=== PATIENT | male | born 1965 | race Hispanic/Latino ===

== ENCOUNTER 2017-11-18 13:17 | Emergency (ER) | payer OTHER ==
--- NOTE | 2017-11-18 13:40 | RAD ---
CHEST ONE VIEW: History: Cough. Fever. Comparison: 02-09-10 FINDINGS: Cardiac silhouette is magnified by projection. Pulmonary vasculature is unremarkable. Mediastinum is midline. There is no confluent airspace consolidation or evidence of pneumothorax. IMPRESSION: No active cardiopulmonary abnormalities are demonstrated. POS: [facility]
[2017-11-18] MEDS ORDERED: methylPREDNISolone Sod Succ/PF 125 MG/2 ML VIAL ONE (15:14)
[2017-11-18] MEDS ORDERED: Lidocaine 1% PF 5 ML VIAL ONE (15:14)
--- NOTE | 2017-11-19 07:12 | RAD ---
CHEST TWO VIEWS: History: Cough and fever. Comparison: 02-09-10 FINDINGS: Cardiac silhouette and pulmonary vasculature are unremarkable. Mediastinum is midline. There is no co nfluent airspace consolidation, pneumothorax, or pleural fluid apparent. IMPRESSION: No active cardiopulmonary abnormalities are demonstrated. POS: [facility]
== END 2017-11-18 16:00 | disposition home or self-care (01) ==
LOC: ERS 13:17
DX: J20.9 Acute bronchitis, unspecified (principal); I10 Essential (primary) hypertension; E78.5 Hyperlipidemia, unspecified; E11.9 Type 2 diabetes mellitus without complications
CPT/HCPCS: 71020; 96372; J2001; J2930

== ENCOUNTER 2018-07-23 12:54 | Outpatient (CLI) | payer MEDICARE | END 2018-07-23 12:55 | disposition home or self-care (01) | LOC: BICULT 12:54 | PROVIDERS: ATTEND Family Medicine | DX: N50.811 Right testicular pain (principal); M81.0 Age-related osteoporosis without current pathological fracture; S32.009S Unspecified fracture of unspecified lumbar vertebra, sequela; M99.33 Osseous stenosis of neural canal of lumbar region; M48.03 Spinal stenosis, cervicothoracic region; M96.1 Postlaminectomy syndrome, not elsewhere classified; M48.061 Spinal stenosis, lumbar region without neurogenic claudication; M99.83 Other biomechanical lesions of lumbar region; Z98.890 Other specified postprocedural states | CPT/HCPCS: 72148; 76870; 93976 ==

== ENCOUNTER 2020-08-01 12:28 | Inpatient (IN) | payer MEDICARE, OTHER ==
[2020-08-01] MEDS ORDERED: Acetaminophen 500 MG TAB ONE (12:44)
[2020-08-01] MEDS ORDERED: Aspirin Chewable 81 MG TAB ONE (12:44)
[2020-08-01 12:59] LABS: #Eosinphils 0.1 thou/uL (0.0-0.7); #Lymphocytes 1.4 thou/uL (1.20-3.40); #Monocytes 0.2 thou/uL (0.11-0.59); %Basophils 0.4 % (0.0-1.0); %Eosinophils 1.8 % (0.0-10.0); %Lymphocytes 30.6 % (21.0-51.0); %Monocytes 4.2 % (0.0-10.0); Mean Corpuscular Hemoglobin 26.4 pg (27.0-31.0); Mean Platelet Volume 8.3 fL (7.4-10.4); Platelet Count 161 thou/uL (130-400); RBC Distribution Width 15.9 % (11.5-14.5); Red Blood Cell (RBC) Count 4.91 mill/uL (4.70-6.10); White Blood Cell (WBC) Count 4.7 thou/uL (4.8-10.8)
[2020-08-01 13:17] LABS: ALT (SGPT) 41 U/L (8-55); AST (SGOT) 29 U/L (5-34); Albumin 3.8 g/dL (3.5-5.0); Alkaline Phosphatase 113 U/L (40-110); Anion Gap 12 mmol/L (10-20); BUN (Urea Nitrogen) 11 mg/dL (8.4-25.7); Bilirubin, Total 1.6 mg/dL (0.2-1.2); Calc. Creatinine Clearance 0 mL/min (70-130); Calcium 8.3 mg/dL (7.8-10.44); Carbon Dioxide 23 mmol/L (22-29); Chloride 106 mmol/L (98-107); Estimated GFR-MDRD Greater than 90; Globulin 2.5 g/dL (2.4-3.5); Glucose 165 mg/dL (70-105); Protein, Total 6.3 g/dL (6.0-8.3); Sodium 138 mmol/L (136-145)
[2020-08-01] MEDS ORDERED: Potassium Chloride 20 MEQ TAB ONE ×2 (13:25→14:54)
--- NOTE | 2020-08-01 13:26 | RAD ---
XR Chest 1 View Portable HISTORY: Left-sided chest pain COMPARISON: 11/18/2017 FINDINGS: The heart size is normal. The lungs are well expanded without focal areas of consolidation, pneumothorax or pleural effusions. IMPRESSION: No radiographic evidence of acute cardiopulmonary process.
[2020-08-01] MEDS ORDERED: Acetaminophen 325 MG TAB PO PRN (16:08)
[2020-08-01 16:09] VITALS: BMI 31.1
[2020-08-01] MEDS ORDERED: HumaLOG 300 UNITS/3 ML VIAL SC PRN ×2 (16:46)
[2020-08-01] MEDS ORDERED: Dextrose 5% in Water 1,000 ML IV PRN (16:46)
[2020-08-01] MEDS ORDERED: Dextrose 50% Abboject 50 ML SYRINGE SLOW IVP PRN (16:46)
[2020-08-01] MEDS ORDERED: Electrolyte Replacement Protocol FS PRN (17:00)
[2020-08-01] MEDS ORDERED: Electrolyte Replacement Protoc 1 EACH EACH FS SCH (17:00)
--- NOTE | 2020-08-01 18:40 | PDOC.HHP ---
Hospitalist HPI - History of Present Illness chest pain History of Present Illness: PCP: Geoffrey santos Patient is a 55-year-old male with past medical history significant for diabetes , hypertension and hyperlipidemia. Patient presented to the ER with chief complaint of left-sided sharp chest pain that radiates to his back. He states that he was arguing with his when the sharp chest pain started. Reports that his left hand was tingling in his left arm felt numb. Patient states that he had intermittent chest pain the past month. Denies shortness of breath, abdominal pain, contact with ill persons, change in bowel or bladder patterns. States his been compliant with medications. Patient stated that approximately 2 weeks ago he went to his physician and they referred him to cardiology, however, he has not been able to make that appointment yet. He reports that his last stress test and heart cath was approximately 9 to 10 years ago. ED Course: Today in the ER the patient had lab work completed, EKG, and chest x-ray. Patient was given potassium chloride 40 mEq, Tylenol 1 g, and aspirin 324 mg. Hospitalist ROS - Review of Systems Constitutional: denies: fever, chills, sweats, weakness, malaise, other Eyes: denies: pain, vision change, conjunctivae inflammation, eyelid inflammation, redness, other ENT: denies: ear pain, ear discharge, nose pain, nose discharge, nose congestion , mouth pain, mouth swelling, throat pain, throat swelling, other Respiratory: denies: cough, dry, shortness of breath, hemoptysis, SOB with excertion, pleuritic pain, sputum, wheezing, other Cardiovascular: reports: chest pain Gastrointestinal: denies: nausea, vomiting, abdominal pain, diarrhea, constipation, melena, hematochezia, other Genitourinary: denies: dysuria, frequency, incontinence, hematuria, retention, other Musculoskeletal: denies: neck pain, shoulder pain, arm pain, back pain, hand pain, leg pain, foot pain, other Skin: denies: rash, lesions, edgar, bruising, other Neurological: denies: weakness, numbness, incoordination, change in speech, confusion, seizures, other All other systems reviewed; all pertinent +/- noted in HPI/Subj - Medication Medications: Allergies: Tylenol #3 Current Medications: Nayeli Albert Aug 01, 2020 12:40 LIDIA Koehler Rachel tablet : Strength - 20 mg : ORAL Patient Dose: 0.5 tab(s) Oral once a day (in the morning). Unknown FriAug 01, 2020 12:41 LIDIA Koehler Rachel UNABLE TO RECALL NAME OF DIABETES MED. aspirin oral FriAug 01, 2020 12:41 LIDIA Koehler Rachel TABLET : Strength - 81 mg : ORAL Patient Dose: 1 tab(s) Oral once a day. gabapentin FriAug 01, 2020 12:41 LIDIA Koehler Rachel TABLET : Strength - 100 mg : ORAL Patient Dose: 300 tab(s) Oral 3 times a day. lisinopril-hydrochlorothiazide FriAug 01, 2020 12:41 LIDIA Koehler Rachel TABLET : Strength - 20 mg-25 mg : ORAL Patient Dose: 1 tab(s) Oral once a day (in the morning). Hospitalist History - Past Medical History Source: patient Cardiac: reports: HTN, Hyperlipidemia Musculoskeletal: reports: Chronic low back pain Endocrine: reports: Diabetes - Past Surgical History Past Surgical History: reports: Cholecystectomy - Family History Family History: reports: no pertinent history - Social History Smoking Status: Never smoker Alcohol: reports: None Drugs: reports: none Living Situation: With Family Occupation: disabled - Exam General Appearance: NAD, awake alert General - other findings: VS:BP: 122/72, Pulse: 65, Resp: 16, Temp: 97.7 (Oral) , O2 sat: 99%RA Eye: PERRL ENT: normocephalic atraumatic, moist mucosa Neck: supple, no lymphadenopathy Heart: RRR, no murmur, no gallops, no rubs, normal peripheral pulses Respiratory: CTAB, no wheezes, no rales, no ronchi, normal chest expansion Gastrointestinal: soft, non-tender, non-distended, normal bowel sounds Extremities: no cyanosis, no edema Extremities - other findings: l arm numbness Neurological: no new deficit Psychiatric: normal affect, normal behavior Hospitalist Results - Labs Result Diagrams: 08/01/20 12:42 08/01/20 12:42 Lab results: WBC 4.7 thou/uL (4.8-10.8) L 08/01/20 12:42 Hgb 13.0 g/dL (14.0-18.0) L 08/01/20 12:42 Hct 39.3 % (42.0-52.0) L 08/01/20 12:42 MCV 80.0 fL (78.0-98.0) 08/01/20 12:42 Plt Count 161 thou/uL (130-400) 08/01/20 12:42 Neutrophils % 63.0 % (42.0-75.0) 08/01/20 12:42 Sodium 138 mmol/L (136-145) 08/01/20 12:42 Potassium 3.0 mmol/L (3.5-5.1) L 08/01/20 12:42 Chloride 106 mmol/L (98-107) 08/01/20 12:42 Carbon Dioxide 23 mmol/L (22-29) 08/01/20 12:42 BUN 11 mg/dL (8.4-25.7) 08/01/20 12:42 Creatinine 0.86 mg/dL (0.7-1.3) 08/01/20 12:42 Glucose 165 mg/dL (70-105) H 08/01/20 12:42 Calcium 8.3 mg/dL (7.8-10.44) 08/01/20 12:42 Total Bilirubin 1.6 mg/dL (0.2-1.2) H 08/01/20 12:42 AST 29 U/L (5-34) 08/01/20 12:42 ALT 41 U/L (8-55) 08/01/20 12:42 Alkaline Phosphatase 113 U/L (40-110) H 08/01/20 12:42 Troponin I 0.010 ng/mL (< 0.028) 08/01/20 16:23 Serum Total Protein 6.3 g/dL (6.0-8.3) 08/01/20 12:42 Albumin 3.8 g/dL (3.5-5.0) 08/01/20 12:42 Laboratory Tests 08/01/20 12:42 Troponin I 0.013 - EKG Interpretation EKG: SR 84 - Radiology Interpretation Chest x-ray Status: report reviewed by me Additional Comment: IMPRESSION: No radiographic evidence of acute cardiopulmonary process Hospitalist H&P A/P - Problem (1) Chest pain Code(s): R07.9 - CHEST PAIN, UNSPECIFIED Status: Acute (2) Diabetes mellitus, type 2 Status: Chronic (3) Hyperlipidemia Code(s): E78.5 - HYPERLIPIDEMIA, UNSPECIFIED Status: Chronic - Plan Plan: Chest pain Continue to trend troponins Monitor on telemetry Cardiac stress test in a.m. Hypokalemia Potassium replaced Electrolyte replacement protocol Check magnesium level also Hypertension Restart home medications Check vital signs every 4 hours Diabetes type 2 Restart home medications Mild sliding scale insulin GI and VTE prophylaxis in place CODE STATUS: Full Patient did not want to name surrogate decision-maker Patient discussed with Dr. Doe
[2020-08-01 19:01] LABS: Troponin I 0.014 ng/mL (< 0.028)
[2020-08-01] MEDS: Gabapentin 300 MG CAP PO SCH (21:14)
[2020-08-02] MEDS ORDERED: Lidocaine 2% Viscous Solution 10 ML, Aluminum & Magnesium Hydroxide 30 ML SSW SCH (00:15)
[2020-08-02 05:05] LABS: Cardiac Risk 3.8 (Less than 4.5)
[2020-08-02] MEDS ORDERED: Magnesium 2 GM/50 ML 2 GM in Premix Bag 1 BAG IVPB SCH (06:30)
[2020-08-02] MEDS ORDERED: Potassium Chloride 20 MEQ TAB PO SCH (06:45)
[2020-08-02] MEDS: Famotidine 20 MG TAB PO SCH ×2 (08:10→20:21)
[2020-08-02] MEDS: Gabapentin 300 MG CAP PO SCH ×2 (08:10→20:21)
[2020-08-02] MEDS ORDERED: Aspirin 325 mg Enteric Coated Tablet PO SCH (09:00)
[2020-08-02] MEDS ORDERED: Enoxaparin Sodium 40 MG/0.4 ML SYRINGE SC SCH (09:00)
[2020-08-02] MEDS ORDERED: ADENOSINE 60 MG/20 ML VIAL ONE (11:06)
[2020-08-02] MEDS ORDERED: Iopamidol 370 76% 100 ML VIAL ONE (11:10)
--- NOTE | 2020-08-02 12:09 | NM ---
EXAM: CARDIAC SPECT HISTORY: Chest pain, hypertension, dyslipidemia, diabetes TECHNIQUE: A myocardial perfusion scan was performed using the single isotope 1 day protocol with chanda hnetium 99m sestamibi. [10 mCi] was injected intravenously for the rest exam followed by 32 mCifor the stress study. Pharmacologic stress with adenosine was monitored and interpreted by SUNG Clement FINDINGS: There is a small defect in the region of the apex on the stress images with incomplete reso lution at rest. Gated SPECT LVEF: 45% Wall motion exam: Mild global hypokinesis IMPRESSION: Findings suggestive of probable apical ischemia.
[2020-08-02 13:04] LABS: SARS-CoV-2 MS2 Positive; SARS-CoV-2 N Gene Negative; SARS-CoV-2 S Gene Negative; SARS-CoV-2 by NAA Not Detected (NotDetected); SARS-CoV-2 orf1ab Negative
[2020-08-02] MEDS ORDERED: Sodium Chloride 0.9% 1,000 ML IV SCH (14:30)
[2020-08-02] MEDS ORDERED: Communication Order-Pharmacy FS SCH (14:30)
--- NOTE | 2020-08-02 14:54 | CON ---
DATE OF CONSULTATION: REASON FOR CONSULTATION: Chest pain and abnormal stress study. HISTORY OF PRESENT ILLNESS: Mr. Pool is a 55-year-old gentleman, who I have seen and evaluated in the past. He was last seen in 2011. He underwent coronary angiography after having abnormal stress test. The current records are not available from 2011 that was last time he was seen in the office. He underwent coronary angiography and was found to have [id number]-pjkzlscs coronary artery disease. His LVEF at that time was 40% to 45%. He has not been seen or evaluated since 2011. He restates he recently presented with chest pain. He had an episode four weeks ago. Pain was [id number], lasting for seconds. He then had an another episode after arguing with his . It was described as moderate. This lasted for several minutes. Based on the above, he presented to the emergency room. His CK troponin has been negative. His recent stress study did show apical ischemia with LVEF 45%. PAST MEDICAL HISTORY: Borderline diabetes, hyperlipidemia, and hypertension. No tobacco abuse HOME MEDICATIONS: Include Cialis, aspirin, gabapentin, and lisinopril/hydrochlorothiazide. PAST SURGICAL HISTORY: Cholecystectomy. REVIEW OF SYSTEMS: Ten-point review of systems is reviewed and as above, otherwise negative. PHYSICAL EXAMINATION: GENERAL: Patient is a pleasant male, who is in no acute distress. The patient appears their stated age. VITAL SIGNS: Blood pressure 134/71, pulse 70, and temperature 97.7. NEUROLOGIC: The patient is alert and oriented x3 with no focal neurologic deficits. HEENT: Sclerae without icterus. Mouth has moist mucous membranes with normal pallor. NECK: No JVD. Carotid upstroke brisk. No bruits bilaterally. LUNGS: Clear to auscultation with unlabored respirations. BACK: No scoliosis or kyphosis. CARDIAC: Regular rate and rhythm with normal S1 and S2. No S3 or S4 noted. No significant rubs, murmurs, thrills, or gallops noted throughout the precordium. PMI is not displaced. There is no parasternal heave. ABDOMEN: Soft, nontender, nondistended. No peritoneal signs present. No hepatosplenomegaly. No abnormal striae. EXTREMITIES: 2+ femoral and 2+ dorsalis pedis pulses. No cyanosis, clubbing, or edema. SKIN: No gross abnormalities. PERTINENT LABORATORY DATA: CK troponin negative. Creatinine 0.86. Stress and rest myocardial perfusion study as above. IMPRESSION: 1. Abnormal stress test. 2. Chest pain. 3. Risk factors for underlying coronary artery disease. RECOMMENDATIONS: I discussed several options with Mr. Pool including medical therapy versus proceeding with coronary angiography. After discussing risks and benefits of above, he decided to proceed with coronary angiography. Discussed the procedure in full detail with Mr. Pool. Risks include, but not limited to the following: I discussed the procedure in full detail with the patient. The risks of the procedure were also discussed. The risks of the procedure include but are not limited to the following: , stroke, DC, need for emergency surgery, loss of limb, bleeding, and infection, as well as a reaction to the dye causing kidney failure and needing long-term dialysis. I also discussed the risks of PCI to include all of the above including coronary dissection and perforation in addition to acute stent thrombosis and restenosis. All questions about the procedure were answered. Given the above, the patient agreed to proceed with coronary angiography and possible PCI. All questions were answered. I also discussed drug-coated versus nondrug-coated stent placement. There were no contraindication to proceed if needed. Further recommendations pending the above. Job ID: [id number]
[2020-08-02] MEDS ORDERED: Lidocaine 1% (PF) 30 ML VIAL ONE (15:00)
[2020-08-02] MEDS ORDERED: Verapamil 5 MG/2 ML VIAL ONE (15:54)
[2020-08-02] MEDS ORDERED: Heparin 10,000 UNITS/ 10 ML VIAL ONE (15:54)
[2020-08-02] MEDS ORDERED: Nitroglycerin 100MG/250ML BOT 250 ML ONE (15:54)
[2020-08-02] MEDS ORDERED: Midazolam HCl 2 mg/2 ml Vial ONE (15:57)
[2020-08-02] MEDS ORDERED: Fentanyl 100 MCG/2 ML VIAL ONE (15:57)
--- NOTE | 2020-08-02 20:50 | DIS ---
DATE OF ADMISSION: 08/02/2020 DATE OF DISCHARGE: 08/02/2020 DISCHARGE DIAGNOSES: 1. Coronary artery disease, mild, medically managed. 2. Hypertension, stable. 3. Diabetes mellitus, type 2. 4. Hyperlipidemia. CONSULTATIONS: Dr. Baires with Cardiology Service. PERTINENT LABORATORY AND X-RAY FINDINGS: Potassium 3.0, magnesium 1.5. Troponin I negative x3. Total cholesterol 64, triglycerides 45, HDL 17, and LDL 38. COVID-19 PCR not detected on 08/01/2020. Portable chest x-ray dated 08/01/2020, showed no acute cardiopulmonary process. Cardiolite stress test dated 08/02/2020, showed apical ischemia with calculated ejection fraction of 45%. Cardiac catheterization dated 08/02/2020, showed 20% stenosis of the LAD, recommendations for medical management. HOSPITAL COURSE: The patient was evaluated after presenting with chest pain in the context of hypertension, diabetes, and hyperlipidemia. Serial troponin I was negative x3, at which point, the patient underwent Cardiolite stress testing showing questionable apical ischemia with calculated ejection fraction of 45%. Due to the abnormal cardiac stress test, the patient underwent evaluation by the Cardiology Service proceeding to cardiac catheterization showing minimal coronary artery disease with recommendations for medical management to include aspirin 81 mg daily. The patient was encouraged on risk factor modification and tighter control of diabetes. I have examined the patient at the time of discharge and discussed followup instructions. The patient verbalized understanding and in agreement and ready for discharge on 08/02/2020. DISCHARGE MEDICATIONS: 1. Enteric-coated aspirin 81 mg p.o. daily. 2. Gabapentin 600 mg p.o. b.i.d. 3. Amaryl 2 mg p.o. q.a.m. 4. Lisinopril/hydrochlorothiazide 20/25 mg one tablet p.o. daily. 5. Cialis 5 mg p.o. daily. 6. Testosterone. FOLLOWUP: The patient may follow up with his primary care provider, Vibha Spear, within 7 days of discharge. CONDITION ON DISCHARGE: Stable. ACTIVITY: Ad-bal. DIET: ADA and heart healthy. CODE STATUS: Full. DISPOSITION: Home on 08/02/2020. Job ID: [id number]
[2020-08-02 21:31] VITALS: BP 131/77; TEMP 97.9
== END 2020-08-02 21:46 | disposition home or self-care (01) | DRG 287 ==
LOC: ERS 12:28 → 2SW 14:10 → OBSVTOIN 08-02 16:02
PROVIDERS: ADMIT Family Medicine; ATTEND Family Medicine
PROC: B2111ZZ Fluoroscopy of Multiple Coronary Arteries using Low Osmolar Contrast (ICD-10-PCS; principal; 2020-08-02)
PROC: B2151ZZ Fluoroscopy of Left Heart using Low Osmolar Contrast (ICD-10-PCS; 2020-08-02)
PROC: 4A023N7 Measurement of Cardiac Sampling and Pressure, Left Heart, Percutaneous Approach (ICD-10-PCS; 2020-08-02)
DX: I25.10 Atherosclerotic heart disease of native coronary artery without angina pectoris (principal); R07.9 Chest pain, unspecified; E11.9 Type 2 diabetes mellitus without complications; I10 Essential (primary) hypertension; G89.29 Other chronic pain; M54.9 Dorsalgia, unspecified; E87.6 Hypokalemia; E78.5 Hyperlipidemia, unspecified; Z79.899 Other long term (current) drug therapy; Z79.82 Long term (current) use of aspirin; Z90.49 Acquired absence of other specified parts of digestive tract; Z88.2 Allergy status to sulfonamides; Z88.6 Allergy status to analgesic agent
CPT/HCPCS: 36415; 36416; 71045; 76942; 78452; 80053; 80061; 83735; 84484; 85025; 87635; 93005; 93017; 93454; 94760; 99152; 99153; A9500; J0153; J1644; J2001; J2250; J3010; J3475; Q9967; U0003

== ENCOUNTER 2020-11-14 10:21 | Outpatient (CLI) | payer MEDICARE ==
--- NOTE | 2020-11-14 10:45 | RAD ---
EXAM: XR Lumbar Spine 2 Or 3 View PROVIDED CLINICAL HISTORY: Back pain COMPARISON: None FINDINGS: 5 nonrib-bearing lumbar-type vertebral bodies are demonstrated. Fusion changes are seen from L2 throu gh S1 with intervening intervertebral disc devices. There is no evidence for hardware loosening or migration. Disc space narrowing, endplate degenerative change and vacuum disc phenomena demonstrated at L1-2. Vertebral body heights appear preserved. No lytic or blastic bony lesions are seen. Lumbar alignment appears normal. IMPRESSION: Extensive postoperative change, with prominent disc degenerative change at L1-2.
== END 2020-11-14 10:22 | disposition home or self-care (01) ==
LOC: RAD-FRANK 10:21
PROVIDERS: ATTEND Nurse Practitioner Family
DX: M51.16 Intervertebral disc disorders with radiculopathy, lumbar region (principal); Z98.890 Other specified postprocedural states
CPT/HCPCS: 72100

== ENCOUNTER 2020-12-30 18:56 | Inpatient (IN) | payer MEDICARE ==
[~2020-12-30 18:56] MED LIST: Iopamidol-370 76% 500 ML 1 ML ONE
[2020-12-30 19:27] LABS: #Lymphocytes 0.4 thou/uL (1.20-3.40); #Neutrophils 1.6 thou/uL (1.40-6.50); %Lymphocytes 17.7 % (21.0-51.0); %Monocytes 0.7 % (0.0-10.0); %Neutrophils 80.6 % (42.0-75.0); Hemoglobin 12.3 g/dL (14.0-18.0); Mean Corpuscular HGB CONC 30.7 g/dL (32.0-36.0); Mean Corpuscular Hemoglobin 23.7 pg (27.0-31.0); Mean Corpuscular Volume 77.3 fL (78.0-98.0); Mean Platelet Volume 8.8 fL (7.4-10.4); Platelet Count 132 thou/uL (130-400); RBC Distribution Width 15.6 % (11.5-14.5)
[2020-12-30] MEDS ORDERED: Cefepime 2 GM VIAL ONE (19:36)
[2020-12-30] MEDS ORDERED: Ondansetron PF 4 MG/2 ML Vial ONE (19:36)
[2020-12-30] MEDS ORDERED: Lorazepam 2 MG/ML VIAL ONE (19:36)
[2020-12-30] MEDS ORDERED: Acetaminophen 325 MG TAB ONE (19:36)
[2020-12-30] MEDS ORDERED: Vancomycin 1 GM/200 ML BAG ONE (19:36)
[2020-12-30 19:52] LABS: ALT (SGPT) 34 U/L (8-55); AST (SGOT) 53 U/L (5-34); Albumin 3.1 g/dL (3.5-5.0); Alkaline Phosphatase 98 U/L (40-110); Anion Gap 18 mmol/L (10-20); BUN (Urea Nitrogen) 18 mg/dL (8.4-25.7); Calc. Creatinine Clearance 0 mL/min (70-130); Calcium 7.3 mg/dL (7.8-10.44); Carbon Dioxide 15 mmol/L (22-29); Chloride 112 mmol/L (98-107); Globulin 2.8 g/dL (2.4-3.5); Glucose 142 mg/dL (70-105); Potassium 4.2 mmol/L (3.5-5.1); Protein, Total 5.9 g/dL (6.0-8.3); Sodium 141 mmol/L (136-145)
[2020-12-30] MEDS ORDERED: Norepinephrine 8 MG/0.9% NS 250 ML ONE (20:18)
[2020-12-30] MEDS ORDERED: Ketamine 50 MG/ML (10ML VIAL) ONE (20:18)
[2020-12-30 20:47] LABS: SARS-CoV-2 NAA Rapid Test Not Detected (NotDetected)
[2020-12-30 21:35] LABS: Bacteria/HPF 2+ HPF (None Seen); Bilirubin Negative (Negative); Blood, Urine 2+ (Negative); Clarity Turbid (Clear); Glucose, Urine (Dipstick) Normal (Negative); Ketone, Urine Negative (Negative); Leukocyte 250 Leu/uL (Negative); Nitrite 1+ (Negative); Protein, Urine (Dipstick) 30 mg/dL (Neg-Trace); RBC/HPF Greater than 50 HPF (0-3); Specific Gravity, Urine 1.028 (1.002-1.036); Squamous Epithelial 0-3 HPF (0-3); Urobilinogen Normal mg/dL (Less than 2); WBC/HPF 21-50 HPF (0-3)
[2020-12-30] MEDS ORDERED: Dexamethasone 10 MG/ML VIAL ONE (21:35)
[2020-12-30 22:20] LABS: Lactic Acid 3.3 mmol/L (0.5-2.2)
[2020-12-30] MEDS ORDERED: Ondansetron PF 4 MG/2 ML Vial IVP PRN (23:07)
[2020-12-30 23:48] LABS: Hemoglobin 12.1 g/dL (14.0-18.0); Mean Corpuscular HGB CONC 31.8 g/dL (32.0-36.0); Mean Corpuscular Hemoglobin 24.2 pg (27.0-31.0); Mean Platelet Volume 9.8 fL (7.4-10.4); Platelet Count 130 thou/uL (130-400); RBC Distribution Width 15.8 % (11.5-14.5); Red Blood Cell (RBC) Count 4.99 mill/uL (4.70-6.10)
[2020-12-31 00:01] LABS: Vancomycin, Trough 6.5 ug/mL
[2020-12-31 00:10] LABS: ALT (SGPT) 134 U/L (8-55); AST (SGOT) 309 U/L (5-34); Alkaline Phosphatase 149 U/L (40-110); Anion Gap 12 mmol/L (10-20); BUN (Urea Nitrogen) 19 mg/dL (8.4-25.7); Bilirubin, Total 2.6 mg/dL (0.2-1.2); Calc. Creatinine Clearance 0 mL/min (70-130); Calcium 7.1 mg/dL (7.8-10.44); Carbon Dioxide 16 mmol/L (22-29); Chloride 115 mmol/L (98-107); Globulin 2.3 g/dL (2.4-3.5); Glucose 121 mg/dL (70-105); Potassium 3.4 mmol/L (3.5-5.1); Protein, Total 5.3 g/dL (6.0-8.3); Sodium 140 mmol/L (136-145)
[2020-12-31 00:30] LABS: Band 15 % (5-11); MDiff Complete? YES; Neutrophil 85 % (42-75); Platelet Morphology Comment Appears Adequate
[2020-12-31 02:18] LABS: Hemoglobin 12.3 g/dL (14.0-18.0); Mean Corpuscular HGB CONC 31.8 g/dL (32.0-36.0); Mean Corpuscular Hemoglobin 24.1 pg (27.0-31.0); Mean Corpuscular Volume 75.6 fL (78.0-98.0); Mean Platelet Volume 9.7 fL (7.4-10.4); Platelet Count 142 thou/uL (130-400); RBC Distribution Width 15.8 % (11.5-14.5); Red Blood Cell (RBC) Count 5.13 mill/uL (4.70-6.10); White Blood Cell (WBC) Count 20.4 thou/uL (4.8-10.8)
[2020-12-31 02:29] LABS: Lactic Acid 1.8 mmol/L (0.5-2.2)
[2020-12-31 02:34] LABS: Band 29 % (5-11); MDiff Complete? YES; Monocytes 2 % (0-10); Neutrophil 69 % (42-75); Platelet Morphology Comment Appears Adequate
[2020-12-31 03:15] LABS: Anion Gap 13 mmol/L (10-20); BUN (Urea Nitrogen) 20 mg/dL (8.4-25.7); Calc. Creatinine Clearance 0 mL/min (70-130); Calcium 7.3 mg/dL (7.8-10.44); Carbon Dioxide 15 mmol/L (22-29); Chloride 116 mmol/L (98-107); Glucose 145 mg/dL (70-105); Potassium 3.1 mmol/L (3.5-5.1); Sodium 141 mmol/L (136-145)
[2020-12-31] MEDS ORDERED: Levofloxacin 500 mg/D5W 100 ml Premix Bag ONE ×2 (03:50→23:38)
[2020-12-31] MEDS ORDERED: Norepinephrine 8 MG/0.9% NS 250 ML ONE ×2 (03:58→12:01)
[2020-12-31] MEDS: Lactated Ringer's 1,000 ML IV SCH ×3 (04:17→19:38)
[2020-12-31] MEDS ORDERED: Potassium Chloride 20 MEQ in Premix Bag 1 BAG IVPB SCH (09:15)
[2020-12-31] MEDS ORDERED: Vancomycin 1 GM/200 ML BAG ONE ×2 (09:27→21:25)
[2020-12-31] MEDS ORDERED: Famotidine/PF 20 mg/2ml Vial ONE ×2 (09:27→21:30)
[2020-12-31] MEDS: Heparin 5,000 UNITS/ML VIAL SC SCH ×3 (09:30→21:27)
[2020-12-31] MEDS: Famotidine/PF 20 mg/2ml Vial SLOW IVP SCH ×2 (09:30→21:34)
[2020-12-31] MEDS ORDERED: Potassium Chloride 20 MEQ/100 ML PREMIX BAG ONE (09:43)
[2020-12-31] MEDS: Vancomycin 1 GM in Premix Bag 1 BAG IVPB SCH ×2 (09:55→21:27)
[2020-12-31] MEDS ORDERED: HYDROcodone/Acetaminophen 5/325 mg Tablet ONE ×3 (11:25→23:50)
[2020-12-31] MEDS: HYDROcodone/Acetaminophen 5/325 mg Tablet PO PRN ×3 (11:26→23:51)
[2020-12-31] MEDS ORDERED: HumaLOG 300 UNITS/3 ML VIAL ONE ×2 (18:29→18:56)
[2020-12-31] MEDS: HumaLOG 300 UNITS/3 ML VIAL SC PRN (18:34)
[2020-12-31] MEDS ORDERED: Famotidine 20 MG TAB ONE ×2 (21:20→21:30)
[2020-12-31] MEDS ORDERED: Heparin 5,000 UNITS/ML VIAL ONE (21:20)
[2021-01-01] MEDS: Lactated Ringer's 1,000 ML IV SCH ×2 (05:22→16:03)
[2021-01-01] MEDS: Norepinephrine 8 MG/0.9% NS 250 ML IVPB SCH (05:40)
[2021-01-01 07:49] LABS: ALT (SGPT) 132 U/L (8-55); AST (SGOT) 185 U/L (5-34); Albumin 2.8 g/dL (3.5-5.0); Alkaline Phosphatase 86 U/L (40-110); Anion Gap 11 mmol/L (10-20); BUN (Urea Nitrogen) 16 mg/dL (8.4-25.7); Bilirubin, Total 1.8 mg/dL (0.2-1.2); Calc. Creatinine Clearance 125 mL/min (70-130); Calcium 7.6 mg/dL (7.8-10.44); Carbon Dioxide 21 mmol/L (22-29); Chloride 108 mmol/L (98-107); Globulin 2.5 g/dL (2.4-3.5); Glucose 99 mg/dL (70-105); Magnesium 1.5 mg/dL (1.6-2.6); Potassium 3.3 mmol/L (3.5-5.1); Protein, Total 5.3 g/dL (6.0-8.3); Sodium 137 mmol/L (136-145)
[2021-01-01 08:50] LABS: Band 23 % (5-11); Hemoglobin 12.1 g/dL (14.0-18.0); Lymphocytes 5 % (21-51); MDiff Complete? YES; Mean Corpuscular HGB CONC 32.5 g/dL (32.0-36.0); Mean Corpuscular Hemoglobin 24.9 pg (27.0-31.0); Mean Corpuscular Volume 76.7 fL (78.0-98.0); Mean Platelet Volume 10.5 fL (7.4-10.4); Microcytosis SLIGHT = 6-15 cells (100X) (0-5/hpf); Monocytes 2 % (0-10); Neutrophil 68 % (42-75); Platelet Count 91 thou/uL (130-400); Platelet Morphology Comment Appears Decreased; Polychromasia SLIGHT = 2-3 cells (100X) (0-2/hpf); RBC Distribution Width 15.7 % (11.5-14.5); Reactive Lymphocytes 2 % (0-10); Red Blood Cell (RBC) Count 4.84 mill/uL (4.70-6.10); White Blood Cell (WBC) Count 20.6 thou/uL (4.8-10.8)
[2021-01-01] MEDS ORDERED: FLU VACC QS2020-21(6MOS UP)/PF 60 MCG/0.5 ML SYRINGE IM ONE (09:00)
[2021-01-01] MEDS ORDERED: Famotidine/PF 20 mg/2ml Vial ONE ×4 (09:18→20:59)
[2021-01-01] MEDS: Heparin 5,000 UNITS/ML VIAL SC SCH ×3 (09:25→21:16)
[2021-01-01] MEDS: Famotidine/PF 20 mg/2ml Vial SLOW IVP SCH ×2 (09:25→21:17)
[2021-01-01] MEDS ORDERED: HYDROcodone/Acetaminophen 5/325 mg Tablet ONE ×3 (09:42→21:28)
[2021-01-01] MEDS: HYDROcodone/Acetaminophen 5/325 mg Tablet PO PRN ×3 (09:44→21:29)
[2021-01-01] MEDS ORDERED: Vancomycin 1 GM/200 ML BAG ONE ×2 (10:26→21:04)
[2021-01-01] MEDS: Vancomycin 1 GM in Premix Bag 1 BAG IVPB SCH ×2 (10:36→21:18)
[2021-01-01] MEDS: HumaLOG 300 UNITS/3 ML VIAL SC PRN (11:00)
[2021-01-01] MEDS ORDERED: Electrolyte Replacement Protocol 1 EACH FS SCH (12:15)
[2021-01-01] MEDS ORDERED: Magnesium 2 GM/50 ML 2 GM in Premix Bag 1 BAG IVPB SCH (13:30)
[2021-01-01] MEDS: Cefepime 2 GM in Sodium Chloride 0.9% 100 ML IVPB SCH (14:05)
[2021-01-01] MEDS: Potassium Chloride 20 MEQ in Premix Bag 1 BAG IVPB SCH ×2 (14:56→17:05)
[2021-01-01] MEDS ORDERED: Sodium Chloride 0.65% Nasal 44 ML BOT EA NARE PRN (15:15)
[2021-01-01] MEDS ORDERED: Heparin 5,000 UNITS/ML VIAL ONE ×2 (15:57→20:58)
[2021-01-01] MEDS ORDERED: Vancomycin 1.5 GRAM/300 ML BAG ONE ×2 (20:58→21:05)
[2021-01-02] MEDS: Lactated Ringer's 1,000 ML IV SCH ×2 (01:04→08:33)
[2021-01-02] MEDS: Cefepime 2 GM in Sodium Chloride 0.9% 100 ML IVPB SCH ×2 (01:04→11:54)
[2021-01-02 03:55] LABS: #Eosinphils 0.1 thou/uL (0.0-0.7); #Lymphocytes 1.1 thou/uL (1.20-3.40); #Monocytes 0.3 thou/uL (0.11-0.59); %Basophils 0.3 % (0.0-1.0); %Eosinophils 0.5 % (0.0-10.0); %Lymphocytes 10.8 % (21.0-51.0); %Monocytes 2.7 % (0.0-10.0); %Neutrophils 85.7 % (42.0-75.0); Hemoglobin 10.8 g/dL (14.0-18.0); Mean Corpuscular HGB CONC 31.2 g/dL (32.0-36.0); Mean Corpuscular Hemoglobin 23.7 pg (27.0-31.0); Mean Platelet Volume 10.7 fL (7.4-10.4); Platelet Count 89 thou/uL (130-400); RBC Distribution Width 15.6 % (11.5-14.5); Red Blood Cell (RBC) Count 4.55 mill/uL (4.70-6.10); White Blood Cell (WBC) Count 10.5 thou/uL (4.8-10.8)
[2021-01-02 04:04] LABS: Iron 20 ug/dL (65-175); Iron Binding Capacity, Total 240 mcg/dL (261-462)
[2021-01-02] MEDS: Norepinephrine 8 MG/0.9% NS 250 ML IVPB SCH (04:04)
[2021-01-02 04:07] LABS: ALT (SGPT) 106 U/L (8-55); AST (SGOT) 140 U/L (5-34); Albumin 2.7 g/dL (3.5-5.0); Alkaline Phosphatase 92 U/L (40-110); Anion Gap 10 mmol/L (10-20); BUN (Urea Nitrogen) 14 mg/dL (8.4-25.7); Bilirubin, Total 1.4 mg/dL (0.2-1.2); Calc. Creatinine Clearance 128 mL/min (70-130); Calcium 7.7 mg/dL (7.8-10.44); Carbon Dioxide 24 mmol/L (22-29); Chloride 108 mmol/L (98-107); Globulin 2.5 g/dL (2.4-3.5); Glucose 88 mg/dL (70-105); Iron 33 ug/dL (65-175); Iron Binding Capacity, Total 248 mcg/dL (261-462); Magnesium 1.7 mg/dL (1.6-2.6); Potassium 3.8 mmol/L (3.5-5.1); Protein, Total 5.2 g/dL (6.0-8.3); Sodium 138 mmol/L (136-145)
[2021-01-02] MEDS ORDERED: Magnesium 2 GM/50 ML 2 GM in Premix Bag 1 BAG IVPB SCH (06:30)
[2021-01-02] MEDS ORDERED: Heparin 5,000 UNITS/ML VIAL ONE ×3 (08:04→19:05)
[2021-01-02] MEDS ORDERED: Famotidine 20 MG TAB ONE (08:04)
[2021-01-02] MEDS ORDERED: Sodium Chloride 0.9% 10 ML ONE ×4 (08:05→19:19)
[2021-01-02] MEDS ORDERED: Famotidine/PF 20 mg/2ml Vial ONE ×2 (08:30→19:05)
[2021-01-02] MEDS: Vancomycin 1 GM in Premix Bag 1 BAG IVPB SCH (08:32)
[2021-01-02] MEDS: Heparin 5,000 UNITS/ML VIAL SC SCH ×3 (08:33→20:22)
[2021-01-02] MEDS: Famotidine/PF 20 mg/2ml Vial SLOW IVP SCH ×2 (08:33→20:26)
[2021-01-02 10:02] LABS: Vancomycin, Trough 27.6 ug/mL
[2021-01-02] MEDS ORDERED: HYDROcodone/Acetaminophen 5/325 mg Tablet ONE (15:27)
[2021-01-02] MEDS: HYDROcodone/Acetaminophen 5/325 mg Tablet PO PRN ×2 (15:30→22:26)
[2021-01-02] MEDS: Ferrous Sulfate 325 MG TAB PO SCH (15:33)
[2021-01-02] MEDS ORDERED: Vancomycin 1 GM/200 ML BAG ONE (19:05)
[2021-01-03] MEDS: Cefepime 2 GM in Sodium Chloride 0.9% 100 ML IVPB SCH ×2 (00:50→13:18)
[2021-01-03] MEDS: Lactated Ringer's 1,000 ML IV SCH ×3 (00:51→17:04)
[2021-01-03] MEDS: HYDROcodone/Acetaminophen 5/325 mg Tablet PO PRN ×2 (05:54→19:19)
[2021-01-03 06:16] LABS: #Eosinphils 0.1 thou/uL (0.0-0.7); #Lymphocytes 1.1 thou/uL (1.20-3.40); #Monocytes 0.1 thou/uL (0.11-0.59); #Neutrophils 3.8 thou/uL (1.40-6.50); %Basophils 0.2 % (0.0-1.0); %Eosinophils 2.8 % (0.0-10.0); %Lymphocytes 20.7 % (21.0-51.0); %Monocytes 2.8 % (0.0-10.0); %Neutrophils 73.6 % (42.0-75.0); Hemoglobin 11.8 g/dL (14.0-18.0); Mean Corpuscular HGB CONC 29.9 g/dL (32.0-36.0); Mean Corpuscular Hemoglobin 22.9 pg (27.0-31.0); Mean Corpuscular Volume 76.5 fL (78.0-98.0); Mean Platelet Volume 10.6 fL (7.4-10.4); Platelet Count 103 thou/uL (130-400); RBC Distribution Width 15.8 % (11.5-14.5); Red Blood Cell (RBC) Count 5.17 mill/uL (4.70-6.10); White Blood Cell (WBC) Count 5.1 thou/uL (4.8-10.8)
[2021-01-03 06:26] LABS: Anion Gap 7 mmol/L (10-20); BUN (Urea Nitrogen) 13 mg/dL (8.4-25.7); Calc. Creatinine Clearance 114 mL/min (70-130); Carbon Dioxide 29 mmol/L (22-29); Chloride 108 mmol/L (98-107); Glucose 85 mg/dL (70-105); Magnesium 1.8 mg/dL (1.6-2.6); Potassium 3.8 mmol/L (3.5-5.1); Sodium 140 mmol/L (136-145)
[2021-01-03] MEDS ORDERED: Magnesium 2 GM/50 ML 2 GM in Premix Bag 1 BAG IVPB SCH (07:15)
[2021-01-03] MEDS: Ferrous Sulfate 325 MG TAB PO SCH ×2 (08:39→16:20)
[2021-01-03] MEDS: Famotidine/PF 20 mg/2ml Vial SLOW IVP SCH ×2 (08:40→21:06)
[2021-01-03] MEDS: Multivitamin W/ Minerals 1 TAB PO SCH (08:40)
[2021-01-03] MEDS: Folic Acid 1 MG TAB PO SCH (08:40)
[2021-01-03] MEDS: Heparin 5,000 UNITS/ML VIAL SC SCH ×3 (08:40→21:05)
[2021-01-03] MEDS ORDERED: Iopamidol-370 76% 500 ML 1 ML ONE (14:19)
[2021-01-04] MEDS: Cefepime 2 GM in Sodium Chloride 0.9% 100 ML IVPB SCH ×2 (01:32→11:49)
[2021-01-04] MEDS: Folic Acid 1 MG TAB PO SCH (08:30)
[2021-01-04] MEDS: Famotidine/PF 20 mg/2ml Vial SLOW IVP SCH ×2 (08:30→20:07)
[2021-01-04] MEDS: Ferrous Sulfate 325 MG TAB PO SCH ×2 (08:30→15:31)
[2021-01-04] MEDS: Multivitamin W/ Minerals 1 TAB PO SCH (08:30)
[2021-01-04] MEDS: Heparin 5,000 UNITS/ML VIAL SC SCH ×3 (08:30→20:07)
[2021-01-04 12:05] LABS: ALT (SGPT) 64 U/L (8-55); AST (SGOT) 54 U/L (5-34); Albumin 2.8 g/dL (3.5-5.0); Alkaline Phosphatase 79 U/L (40-110); Anion Gap 8 mmol/L (10-20); BUN (Urea Nitrogen) 10 mg/dL (8.4-25.7); Bilirubin, Total 0.7 mg/dL (0.2-1.2); Calc. Creatinine Clearance 116 mL/min (70-130); Calcium 7.9 mg/dL (7.8-10.44); Carbon Dioxide 26 mmol/L (22-29); Chloride 109 mmol/L (98-107); Globulin 2.6 g/dL (2.4-3.5); Glucose 133 mg/dL (70-105); Potassium 4.4 mmol/L (3.5-5.1); Protein, Total 5.4 g/dL (6.0-8.3); Sodium 139 mmol/L (136-145)
[2021-01-04] MEDS: HYDROcodone/Acetaminophen 5/325 mg Tablet PO PRN (15:35)
[2021-01-05] MEDS: Cefepime 2 GM in Sodium Chloride 0.9% 100 ML IVPB SCH ×2 (00:48→11:50)
[2021-01-05] MEDS: HYDROcodone/Acetaminophen 5/325 mg Tablet PO PRN ×2 (01:47→12:50)
[2021-01-05 06:13] LABS: ALT (SGPT) 55 U/L (8-55); AST (SGOT) 43 U/L (5-34); Albumin 2.7 g/dL (3.5-5.0); Alkaline Phosphatase 76 U/L (40-110); Bilirubin, Direct 0.4 mg/dL (0.1-0.3); Bilirubin, Total 0.7 mg/dL (0.2-1.2); Protein, Total 5.1 g/dL (6.0-8.3)
[2021-01-05] MEDS: Folic Acid 1 MG TAB PO SCH (07:45)
[2021-01-05] MEDS: Heparin 5,000 UNITS/ML VIAL SC SCH ×3 (07:45→20:16)
[2021-01-05] MEDS: Multivitamin W/ Minerals 1 TAB PO SCH (07:45)
[2021-01-05] MEDS: Famotidine/PF 20 mg/2ml Vial SLOW IVP SCH ×2 (07:45→20:16)
[2021-01-05] MEDS: Ferrous Sulfate 325 MG TAB PO SCH ×2 (07:45→15:36)
[2021-01-06] MEDS: Cefepime 2 GM in Sodium Chloride 0.9% 100 ML IVPB SCH ×2 (01:45→12:33)
[2021-01-06 06:03] LABS: #Eosinphils 0.1 thou/uL (0.0-0.7); #Lymphocytes 1.1 thou/uL (1.20-3.40); #Monocytes 0.3 thou/uL (0.11-0.59); #Neutrophils 1.4 thou/uL (1.40-6.50); %Eosinophils 4.1 % (0.0-10.0); %Lymphocytes 37.4 % (21.0-51.0); %Monocytes 10.3 % (0.0-10.0); %Neutrophils 47.2 % (42.0-75.0); Hemoglobin 10.4 g/dL (14.0-18.0); Mean Corpuscular HGB CONC 31.3 g/dL (32.0-36.0); Mean Corpuscular Hemoglobin 23.5 pg (27.0-31.0); Mean Platelet Volume 10.3 fL (7.4-10.4); Platelet Count 104 thou/uL (130-400)
[2021-01-06 06:20] LABS: ALT (SGPT) 47 U/L (8-55); AST (SGOT) 37 U/L (5-34); Albumin 2.7 g/dL (3.5-5.0); Alkaline Phosphatase 78 U/L (40-110); Anion Gap 8 mmol/L (10-20); BUN (Urea Nitrogen) 14 mg/dL (8.4-25.7); Bilirubin, Direct 0.4 mg/dL (0.1-0.3); Bilirubin, Total 0.9 mg/dL (0.2-1.2); Calc. Creatinine Clearance 134 mL/min (70-130); Calcium 7.9 mg/dL (7.8-10.44); Carbon Dioxide 24 mmol/L (22-29); Chloride 110 mmol/L (98-107); Glucose 89 mg/dL (70-105); Potassium 3.9 mmol/L (3.5-5.1); Protein, Total 5.3 g/dL (6.0-8.3); Sodium 138 mmol/L (136-145)
[2021-01-06] MEDS: Multivitamin W/ Minerals 1 TAB PO SCH (09:00)
[2021-01-06] MEDS: Folic Acid 1 MG TAB PO SCH (09:00)
[2021-01-06] MEDS: Famotidine/PF 20 mg/2ml Vial SLOW IVP SCH (09:00)
[2021-01-06] MEDS: Ferrous Sulfate 325 MG TAB PO SCH (09:00)
[2021-01-06] MEDS: Heparin 5,000 UNITS/ML VIAL SC SCH ×2 (09:00→15:00)
[2021-01-06 12:52] VITALS: BP 127/71; TEMP 98.3
== END 2021-01-06 16:01 | disposition home or self-care (01) | DRG 871 ==
LOC: ERS 18:56 → ERHOLD 21:46 → PACU-TCU 12-31 16:14 → T4-B 01-02 21:14
PROVIDERS: ADMIT Internal Medicine; ATTEND Hospitalist
PROC: 3E033XZ Introduction of Vasopressor into Peripheral Vein, Percutaneous Approach (ICD-10-PCS; principal; 2020-12-30)
PROC: 02HV33Z Insertion of Infusion Device into Superior Vena Cava, Percutaneous Approach (ICD-10-PCS; 2020-12-30)
DX: A41.51 Sepsis due to Escherichia coli [E. coli] (principal); R65.21 Severe sepsis with septic shock; K72.00 Acute and subacute hepatic failure without coma; K83.09 Other cholangitis; N17.9 Acute kidney failure, unspecified; N30.00 Acute cystitis without hematuria; Z20.822 Contact with and (suspected) exposure to COVID-19; E78.5 Hyperlipidemia, unspecified; E78.00 Pure hypercholesterolemia, unspecified; G89.29 Other chronic pain; M54.9 Dorsalgia, unspecified; K52.9 Noninfective gastroenteritis and colitis, unspecified; E11.9 Type 2 diabetes mellitus without complications; E66.9 Obesity, unspecified; Z68.28 Body mass index [BMI] 28.0-28.9, adult; Z79.899 Other long term (current) drug therapy; Z78.1 Physical restraint status; Z90.49 Acquired absence of other specified parts of digestive tract; Z79.82 Long term (current) use of aspirin; Z88.5 Allergy status to narcotic agent; Z98.0 Intestinal bypass and anastomosis status; Z79.84 Long term (current) use of oral hypoglycemic drugs
CPT/HCPCS: 0240U; 36415; 36416; 36556; 51701; 71045; 71275; 74174; 74177; 80048; 80053; 80076; 80202; 81003; 81015; 82607; 82746; 83540; 83550; 83605; 83735; 85025; 87040; 87086; 93005; 96365; 96367; 96375; 99152; 99153; 99292; J0692; J1100; J1644; J1815; J1956; J2060; J2405; J3370; J3475; J3480; J3490; Q9967; S0028

== ENCOUNTER 2021-02-05 10:54 | Outpatient (CLI) | payer MEDICARE | END 2021-02-05 10:55 | disposition home or self-care (01) | LOC: ULT 10:54 | PROVIDERS: ATTEND Nurse Practitioner Family | DX: R74.8 Abnormal levels of other serum enzymes (principal); R93.2 Abnormal findings on diagnostic imaging of liver and biliary tract | CPT/HCPCS: 76705 ==

== ENCOUNTER 2021-02-05 11:46 | Outpatient (CLI) | payer MEDICARE | END 2021-02-05 11:47 | disposition home or self-care (01) | LOC: BICCT 11:46 | PROVIDERS: ATTEND Orthopaedic Surgery Orthopaedic Surgery of the Spine | DX: M40.295 Other kyphosis, thoracolumbar region (principal); R74.8 Abnormal levels of other serum enzymes; R93.2 Abnormal findings on diagnostic imaging of liver and biliary tract | CPT/HCPCS: 72128; 72131; 76705 ==

== ENCOUNTER 2021-03-18 00:38 | Emergency (ER) | payer MEDICARE ==
[2021-03-18] MEDS ORDERED: Morphine 4 MG/ML VIAL ONE (01:51)
[2021-03-18] MEDS ORDERED: Ondansetron PF 4 MG/2 ML Vial ONE (01:51)
[2021-03-18 02:19] LABS: #Eosinphils 0.1 thou/uL (0.0-0.7); #Lymphocytes 0.7 thou/uL (1.20-3.40); #Monocytes 0.3 thou/uL (0.11-0.59); #Neutrophils 2.4 thou/uL (1.40-6.50); %Eosinophils 3.8 % (0.0-10.0); %Lymphocytes 20.6 % (21.0-51.0); %Monocytes 7.9 % (0.0-10.0); %Neutrophils 67.7 % (42.0-75.0); Hemoglobin 9.3 g/dL (14.0-18.0); Mean Corpuscular HGB CONC 32.7 g/dL (32.0-36.0); Mean Corpuscular Hemoglobin 24.9 pg (27.0-31.0); Mean Corpuscular Volume 76.3 fL (78.0-98.0); Mean Platelet Volume 8.2 fL (7.4-10.4); Platelet Count 159 thou/uL (130-400); RBC Distribution Width 15.5 % (11.5-14.5); Red Blood Cell (RBC) Count 3.74 mill/uL (4.70-6.10); White Blood Cell (WBC) Count 3.5 thou/uL (4.8-10.8)
[2021-03-18 02:39] LABS: ALT (SGPT) 21 U/L (8-55); AST (SGOT) 20 U/L (5-34); Alkaline Phosphatase 78 U/L (40-110); Anion Gap 13 mmol/L (10-20); BUN (Urea Nitrogen) 9 mg/dL (8.4-25.7); Bilirubin, Total 1.1 mg/dL (0.2-1.2); Calc. Creatinine Clearance 0 mL/min (70-130); Calcium 8.5 mg/dL (7.8-10.44); Carbon Dioxide 22 mmol/L (22-29); Chloride 103 mmol/L (98-107); Globulin 2.7 g/dL (2.4-3.5); Glucose 99 mg/dL (70-105); Lipase 26 U/L (8-78); Potassium 3.8 mmol/L (3.5-5.1); Protein, Total 5.7 g/dL (6.0-8.3); Sodium 134 mmol/L (136-145)
[2021-03-18 02:45] LABS: Bilirubin Negative (Negative); Blood, Urine Negative (Negative); Clarity Clear (Clear); Glucose, Urine (Dipstick) Normal (Negative); Ketone, Urine 20 mg/dL (Negative); Leukocyte Negative Leu/uL (Negative); Nitrite Negative (Negative); Protein, Urine (Dipstick) 10 mg/dL (Neg-Trace); Specific Gravity, Urine 1.011 (1.002-1.036); pH, Urine 7.5 (5.0-9.0)
[2021-03-18] MEDS ORDERED: Magnesium Citrate 300 ML BOT ONE (03:47)
== END 2021-03-18 03:54 | disposition home or self-care (01) ==
LOC: ERS 00:38
DX: R10.84 Generalized abdominal pain (principal); R14.3 Flatulence; R10.816 Epigastric abdominal tenderness; E11.9 Type 2 diabetes mellitus without complications; E78.5 Hyperlipidemia, unspecified; E78.00 Pure hypercholesterolemia, unspecified; I10 Essential (primary) hypertension
CPT/HCPCS: 36415; 74177; 80053; 81003; 83690; 85025; 93005; 96374; 96375; 99285; J2270; J2405

== ENCOUNTER 2023-08-11 11:01 | Outpatient (CLI) | payer MEDICARE | END 2023-08-11 11:02 | disposition home or self-care (01) | LOC: BICULT 11:01 | PROVIDERS: ATTEND Nurse Practitioner Family | DX: R80.9 Proteinuria, unspecified (principal) | CPT/HCPCS: 76770 ==